=== PATIENT | male | born 1940 | race Caucasian/White ===

== ENCOUNTER 2017-02-22 10:53 | Observation (INO) | payer MEDICARE, MEDICAID ==
[~2017-02-22 10:53] MED LIST: Acetylcysteine CAP (RENAL)* 600 MG PO ONE
[2017-02-22 11:52] LABS: BUN/Creatinine Ratio 22.2 (8-20); Calcium 8.8 mg/dL (8.6-10.3); EGFR African American 57.2 (>60); EGFR Non-African American 44.5 (>60); Potassium 4.1 mmol/L (3.5-5.0)
[2017-02-22] MEDS ORDERED: Heparin(*) 1000 UNIT/ML 10 ML VIAL CATH LAB IV ONE ×2 (12:20→14:52)
[2017-02-22] MEDS ORDERED: Midazolam* 1 MG/ML 5 ML VIAL (5 MG) ONE (12:20)
[2017-02-22] MEDS ORDERED: Naloxone* 0.4 MG/ML 1 ML VIAL ONE (12:20)
[2017-02-22] MEDS ORDERED: fentaNYL* 50 MCG/ML 2 ML VIAL (100 MCG VIAL) ONE (12:20)
[2017-02-22] MEDS ORDERED: Flumazenil* 0.1 MG/ML 5 ML MDV ONE (12:20)
[2017-02-22] MEDS ORDERED: nitroGLYCERIN DRIP* 250 ML ONE (12:21)
[2017-02-22] MEDS ORDERED: Lidocaine 1% INJ* 10 MG/ML 30 ML SDV ONE (12:21)
[2017-02-22] MEDS ORDERED: Iodixanol* (CONTRAST) 320 MG/ML 100 ML SDV ONE ×2 (12:21→13:36)
[2017-02-22] MEDS ORDERED: Heparin 2 UNITS/ML IVPREMIX* 1,000 ML IV ONE ×3 (12:21→14:48)
[2017-02-22] MEDS ORDERED: VERAPAMIL 2.5 MG/ML 4 ML VIAL ONE (14:02)
[2017-02-22] MEDS ORDERED: Atropine SYRINGE* 0.1 MG/ML 10 ML SYRINGE (1 MG) ONE (16:36)
[2017-02-22] MEDS ORDERED: oxyCODONE/Acetamin 5/325 MG* TAB PO PRN (16:38)
[2017-02-22] MEDS ORDERED: NS 0.9% 1000 ML* 1,000 ML IV SCH (16:45)
[2017-02-22] MEDS ORDERED: NS 0.9% 1000 ML* 1,000 ML IV PRN (17:45)
[2017-02-22] MEDS ORDERED: Clopidogrel TAB* 300 MG PO ONE (18:30)
[2017-02-22 22:22] VITALS: BP 144/53
== END 2017-02-22 20:57 | disposition home or self-care (01) ==
LOC: CHICATH 10:53 → SSU 17:43
PROVIDERS: ADMIT Internal Medicine Cardiovascular Disease; ATTEND Internal Medicine Cardiovascular Disease
DX: M86.671 Other chronic osteomyelitis, right ankle and foot (principal); I73.9 Peripheral vascular disease, unspecified; I70.235 Atherosclerosis of native arteries of right leg with ulceration of other part of foot; I65.22 Occlusion and stenosis of left carotid artery; E11.9 Type 2 diabetes mellitus without complications; Z79.4 Long term (current) use of insulin; N18.3 Chronic kidney disease, stage 3 (moderate); Z87.891 Personal history of nicotine dependence; I10 Essential (primary) hypertension
CPT/HCPCS: 36415; 75716; 80048; 99156; 99157; A9270-GY; C1724; C1725; C1760; C1769; C1887; C2623; G0378; J0461; J1644; J2001; J2250; J2310; J3010

== ENCOUNTER → 2018-06-23 10:18 | Day surgery (SDC) | payer MEDICARE, MEDICAID ==
[~2018-06-23 10:18] MED LIST changes: -Acetylcysteine CAP (RENAL)* 600 MG PO ONE; +Flumazenil* 0.1 MG/ML 5 ML MDV ONE; +Heparin 2 UNITS/ML IVPREMIX* 2,000 ML IV ONE; +Heparin(*) 1000 UNIT/ML 10 ML VIAL CATH LAB IV ONE; +Iodixanol 320 (CONTRAST) 100 ML SDV ONE; +LORazepam TAB(*) 1 MG ONE; +Lidocaine 1% INJ* 10 MG/ML 30 ML SDV ONE; +Midazolam* 1 MG/ML 5 ML VIAL (5 MG) ONE; +Naloxone* 0.4 MG/ML 1 ML VIAL ONE; +fentaNYL* 50 MCG/ML 2 ML VIAL (100 MCG VIAL) ONE
[2018-06-23 15:55] VITALS: BP 165/81
== END | disposition home or self-care (01) ==
LOC: CHICATH 10:18
PROVIDERS: ATTEND Radiology Diagnostic Radiology
DX: I70.221 Atherosclerosis of native arteries of extremities with rest pain, right leg (principal); E11.42 Type 2 diabetes mellitus with diabetic polyneuropathy; Z79.4 Long term (current) use of insulin; N18.3 Chronic kidney disease, stage 3 (moderate); Z85.46 Personal history of malignant neoplasm of prostate; G47.33 Obstructive sleep apnea (adult) (pediatric); E78.5 Hyperlipidemia, unspecified; Z86.73 Personal history of transient ischemic attack (TIA), and cerebral infarction without residual deficits; I12.9 Hypertensive chronic kidney disease with stage 1 through stage 4 chronic kidney disease, or unspecified chronic kidney disease; Z87.891 Personal history of nicotine dependence
CPT/HCPCS: 75716; 75736; 76937; 93005; A9270-GY; C1769; C1887; C1894; J1644; J2250; J2310; J3010